=== PATIENT | female | born 1985 | race Caucasian/White ===

== ENCOUNTER 2018-12-28 19:29 | Emergency (ER) | payer OTHER ==
[~2018-12-28] VITALS: Ht 165.1 cm; Wt 68.0 kg
[2018-12-28] MEDS ORDERED: LORAZEPAM 1 MG TAB PO ONE (19:45)
--- NOTE | 2018-12-28 20:15 | NUR ---
PT VERY ANXIOUS AT THIS TIME, GIVEN ATIVAN ORDERED (SEE eMAR), WILL REPEAT EKG IN A FEW MINUTES, PT AND FAMILY UPDATED ON CURRENT PLAN OF CARE, VERBALIZED UNDERSTANDING. INFORMED JUSTINO BLACK OF CURRENT PT STATUS.
--- NOTE | 2018-12-28 20:19 | Diagnostic Imaging Report ---
Frontal and lateral views of the chest. HISTORY: Chest pain COMPARISON: None available. DISCUSSION: Overlying monitoring leads. Lungs: Low lung volumes result in bibasilar vascular crowding, accentuation of the pulmonary interstitial markings, central pulmonary vasculature, and the cardiac silhouette. Allowing for these limitations, the findings are as follows: No evidence of a consolidative pneumonia or pulmonary alveolar edema. Pleura: No pleural effusion or pneumothorax. Heart and mediastinum: The cardiomediastinal silhouette appears unremarkable. Bones and soft tissues: Appear unremarkable. IMPRESSION: No acute radiographic abnormality. Signed by: Dr. Sergei Shultz D.O., M.M.M. on 12/28/2018 8:16 PM
[2018-12-28 21:05] VITALS: BP 123/89
== END 2018-12-28 21:20 | disposition home or self-care (01) ==
LOC: ER 19:29
DX: R07.89 Other chest pain (principal); F41.1 Generalized anxiety disorder
CPT/HCPCS: 71046; 93005; 99283